=== PATIENT | female | born 1960 | race Caucasian/White ===

== ENCOUNTER 2017-07-06 06:02 | Inpatient (IN) | payer OTHER ==
[2017-07-06] MEDS ORDERED: Heparin 5,000 UNITS/ML VIAL ONE (06:30)
[2017-07-06 06:51] LABS: #Basophils 0.1 thou/uL (0.0-0.2); #Eosinphils 0.4 thou/uL (0.0-0.7); #Lymphocytes 3.6 thou/uL (1.20-3.40); #Monocytes 0.5 thou/uL (0.11-0.59); #Neutrophils 6.4 thou/uL (1.40-6.50); %Basophils 0.9 % (0.0-1.0); %Lymphocytes 32.6 % (21.0-51.0); %Monocytes 4.8 % (0.0-10.0); Hematocrit 45.2 % (36.0-47.0); Mean Platelet Volume 7.9 fL (7.4-10.4); Red Blood Cell (RBC) Count 4.32 mill/uL (4.20-5.40); White Blood Cell (WBC) Count 11.1 thou/uL (4.8-10.8)
[2017-07-06] MEDS ORDERED: Protamine Sulfate 50 MG/5 ML VIAL ONE (06:57)
[2017-07-06] MEDS ORDERED: Fentanyl 100 MCG/2 ML VIAL ONE (07:05)
[2017-07-06] MEDS ORDERED: Promethazine HCl 25 MG/ML VIAL ONE (07:06)
[2017-07-06 07:08] LABS: Anion Gap 17 mmol/L (10-20); BUN (Urea Nitrogen) 14 mg/dL (9.8-20.1); Calc. Creatinine Clearance 77 mL/min (70-130); Calcium 9.6 mg/dL (7.8-10.44); Carbon Dioxide 22 mmol/L (22-29); Chloride 107 mmol/L (98-107); Estimated GFR-MDRD 87
[2017-07-06] MEDS ORDERED: Midazolam HCl 2 mg/2 ml Vial ONE (07:12)
[2017-07-06] MEDS ORDERED: Glycopyrrolate 0.2 MG/ML 5 ML SYRINGE ONE (07:56)
[2017-07-06] MEDS ORDERED: Lidocaine 1% PF 5 ML VIAL ONE (07:56)
[2017-07-06] MEDS ORDERED: Labetalol HCl 100 MG/20 ML SYR ONE (07:56)
[2017-07-06] MEDS ORDERED: Dexamethasone 20 MG/5 ML VIAL ONE (07:56)
[2017-07-06] MEDS ORDERED: Ondansetron HCl/PF 4 MG/2 ML Vial ONE (07:56)
[2017-07-06] MEDS ORDERED: Propofol 200 MG/20 ML VIAL ONE (07:56)
[2017-07-06] MEDS ORDERED: ePHEDrine/0.9% NaCl/PF SYRINGE 50 mg/10 ml ONE (07:56)
[2017-07-06] MEDS ORDERED: PHENYLEPHRINE-NS 100 MCG/ML 10 ML SYRINGE ONE (07:56)
[2017-07-06] MEDS ORDERED: Promethazine HCl 25 MG/ML VIAL SLOW IVP PRN (10:21)
[2017-07-06] MEDS ORDERED: Morphine Sulfate 2 MG/ML SYRINGE SLOW IVP PRN ×2 (10:21→13:15)
[2017-07-06] MEDS ORDERED: Ondansetron HCl/PF 4 MG/2 ML Vial IVP PRN ×2 (10:21→13:15)
[2017-07-06] MEDS ORDERED: Meperidine HCl/PF 25 MG/ML VIAL SLOW IVP PRN (10:21)
[2017-07-06] MEDS ORDERED: Nitroglycerin 50 MG/250 ML BOT 250 ML ONE (10:24)
--- NOTE | 2017-07-06 10:35 | OP ---
PREOPERATIVE DIAGNOSIS: Critical left carotid artery stenosis. SURGEON: Julio Powers M.D. COLLAR SETTER OVERLOCK: None. POSTOPERATIVE DIAGNOSIS: Critical left carotid artery stenosis. SPONGE AND NEEDLE COUNTS: Correct. ANESTHESIA: General. OPERATION PERFORMED: Left carotid endarterectomy with bovine pericardium patch angioplasty. FINDINGS AT OPERATION: Near occlusive and heavily calcified plaque involving the bulb and proximal ICA. DESCRIPTION OF OPERATION: The patient was taken to the operating room. Following the induction of general endotracheal anesthesia, the patient was prepped and draped in usual sterile fashion. Skin incision was made parallel to the anterior border of the sternocleidomastoid muscle and deepened through the subcutaneous tissues and platysma. Carotid sheath was entered, identifying the vagus nerve in its proper posterior position. Isolation of the CCA, ECA, and ICA was performed. Hypoglossal nerve was visualized, however, not manipulated. Heparin dose was given. Fine vascular clamps were applied to the above-mentioned vessels. Arteriotomy was created extending across the bulb and ICA to a point above the plaque. Due to the friable nature of the plaque, quick endarterectomy was performed. The #10 shunt was then employed. Meticulous attention was then made to retrieving all residual debris including before and after irrigation with heparinized saline. An excellent feathering point was achieved in the ICA requiring only one 7-0 Prolene tacking suture. The arteriotomy was then closed with the bovine pericardium patch and running 6- 0 Prolene suture. Prior to securing the patch the shunt was removed, the ICA backflushed, and the site again irrigated with heparinized saline. Clamps were removed from the ECA, CCA, and ICA in that order. Heparin was partially reversed with protamine. Copious irrigation was performed. Meticulous hemostasis was assured. Wound was then closed in layers with running 2-0 Vicryl sutures followed by skin closure with a 4-0 Vicryl subcuticular stitch. Dermabond was applied. The patient was subsequently awakened and taken to the recovery room in stable condition. Blood loss negligible. MTDD
[2017-07-06] MEDS ORDERED: Morphine Sulfate 2 MG/ML SYRINGE ONE ×3 (11:26→16:14)
[2017-07-06] MEDS ORDERED: Fentanyl 100 MCG/2 ML VIAL SLOW IVP PRN ×2 (13:15)
[2017-07-06] MEDS ORDERED: HYDROcodone/Acetaminophen 5/325 mg Tablet PO PRN ×2 (13:15)
[2017-07-06] MEDS ORDERED: Nitroglycerin 50 MG/250 ML BOT 250 ML IVPB PRN (13:15)
[2017-07-06] MEDS ORDERED: Clopidogrel Bisulfate 75 MG TAB PO SCH ×2 (13:15→13:45)
[2017-07-06] MEDS ORDERED: Phenylephrine 10 MG/NS 250 ML 250 ML IVPB PRN (13:15)
[2017-07-06] MEDS ORDERED: Promethazine HCl 25 MG/ML VIAL IM PRN (13:15)
[2017-07-06] MEDS ORDERED: Sodium Chloride 0.9% 1,000 ML IV SCH (13:15)
[2017-07-06] MEDS ORDERED: DOPamine 400 MG/D5W 250 ML 250 ML IVPB PRN (13:15)
[2017-07-06] MEDS ORDERED: Acetaminophen 325 MG TAB PO PRN (13:15)
[2017-07-06] MEDS ORDERED: Clopidogrel Bisulfate 75 MG TAB ONE (13:17)
[2017-07-06 18:49] VITALS: BMI 25.1
[2017-07-06 20:09] VITALS: BP 139/66
[2017-07-06] MEDS ORDERED: Atorvastatin Calcium 40 MG TAB PO SCH (21:00)
[2017-07-07 07:57] VITALS: TEMP 98
[2017-07-07] MEDS ORDERED: Clopidogrel Bisulfate 75 MG TAB PO SCH (09:00)
[2017-07-07] MEDS ORDERED: Aspirin 81 mg Enteric Coated Tablet PO SCH (09:00)
--- NOTE | 2017-07-07 13:42 | DIS ---
REASON FOR ADMISSION: Left carotid endarterectomy. CLINICAL RESUME: The patient is a 57-year-old female, who underwent right carotid endarterectomy on 06/04/2017 after experiencing crescendo strokes on that side. She was also found to have critical left carotid artery disease. Yesterday, she was admitted and underwent left carotid endarterectomy with bovine pericardium patch angioplasty. See operative report for details. Her postoperative course has been unremarkable and as of today, she was considered stable for discharge. FOLLOWUP: Follow up will be arranged in our office in 2 weeks or sooner p.r.n ACTIVITY: Light for the next 4-5 days. DISCHARGE INSTRUCTIONS: Wound care as instructed. DIET: Cardiac prudent. DISCHARGE MEDICATIONS: She is to resume her complete home regimen without change. NEW MEDICATION: [place] 5/325 mg 1-2 q.4-6 hours p.r.n. MTDD
== END 2017-07-07 10:35 | disposition home or self-care (01) | DRG 39 ==
LOC: SURG A 06:02 → CCU 16:04
PROVIDERS: ADMIT Thoracic Surgery (Cardiothoracic Vascular Surgery); ATTEND Thoracic Surgery (Cardiothoracic Vascular Surgery)
PROC: 03CL0ZZ Extirpation of Matter from Left Internal Carotid Artery, Open Approach (ICD-10-PCS; principal; 2017-07-06)
PROC: 03UL0KZ Supplement Left Internal Carotid Artery with Nonautologous Tissue Substitute, Open Approach (ICD-10-PCS; 2017-07-06)
DX: I65.22 Occlusion and stenosis of left carotid artery (principal); I10 Essential (primary) hypertension; E78.00 Pure hypercholesterolemia, unspecified; F17.210 Nicotine dependence, cigarettes, uncomplicated; Z86.73 Personal history of transient ischemic attack (TIA), and cerebral infarction without residual deficits
CPT/HCPCS: 36415; 80048; 85025; J0360; J1100; J1165; J1170; J1642; J1644; J2001; J2250; J2270; J2405; J2550; J2704; J2720; J3010; J7620